=== PATIENT | female | born 1960 | race Caucasian/White ===

== ENCOUNTER 2016-07-05 11:13 | Emergency (ER) | payer MEDICAID ==
[2016-07-05] MEDS ORDERED: IPRATROPIUM/ALBUTEROL 3 ML DEYVIAL IH ONE (11:55)
[2016-07-05 12:25] VITALS: BP 146/71; PULSE 82; RESP 18; TEMP 98.2; O2SAT 95
--- NOTE | 2016-07-05 12:26 | UCPHY ---
H & P Patient Type: New Chief Complaint Nursing Narrative: COUGH AND CONGESTION SINCE SUNDAY, FEVER HIGH OF 100.6F. Time Seen by Provider: 07/05/16 11:26 HPI/ROS: 55-year-old female presents complaining of cough, nasal congestion she feels like she is wheezing. No history of asthma no history of emphysema she denies smoking. She also complains of fevers chills and body aches. Review of systems As per HPI General positive fever positive chills no weakness HEENT no eye pain no eye discharge. No eye redness, no sore throat Respiratory positive cough no shortness of breath Cardiac no chest pain, no peripheral edema GI no abdominal pain, no diarrhea, no constipation, no nausea, no vomiting no flank pain, no hematuria, no dysuria Musculoskeletal positive myalgias, no joint pain Heme no easy bruising, no easy bleeding Endo no polyuria, no polydipsia Skin no rashes, no pruritus Neuro no syncope, no dizziness, no headaches Psych is no suicidal ideation, no homicidal ideation Source: Patient Exam Limitations: No limitations - Medical/Surgical History Hx Asthma: No Hx Chronic Respiratory Disease: No Hx Diabetes: No Hx Cardiac Disease: No Hx Renal Disease: No Hx Cirrhosis: No Hx Alcoholism: No Hx HIV/AIDS: No Hx Splenectomy or Spleen Trauma: No Other PMH: DENIES - Family History Significant Family History: No pertinent family hx - Social History Smoking Status: Never smoked Alcohol Use: Rarely Drug Use: None - Physical Exam Exam: 55-year-old female Alert and oriented nontoxic appearance, no acute distress afebrile Atraumatic normocephalic Extraocular muscles intact, anicteric Nares mild yellowish discharge Oropharynx mild erythema no tonsillar swelling no exudate no uvular deviation, tolerating own secretions Neck supple no lymphadenopathy Lungs clear to auscultation bilaterally Heart regular rate and rhythm Abdomen normoactive bowel sounds soft nontender Extremities no cyanosis clubbing or edema Skin no rash Constitutional: Initial Vital Signs Temperature (C) 37.1 C 07/05/16 11:25 Heart Rate 68 07/05/16 11:25 Respiratory Rate 20 07/05/16 11:25 Blood Pressure 148/81 H 07/05/16 11:25 O2 Sat (%) 93 07/05/16 11:25 O2 Delivery Mode Room Air Allergies/Adverse Reactions: No Known Allergies Allergy (Unverified 07/05/16 11:31) Home Medications: Medication Instructions Recorded AZITHROMYCIN [Z-PACK] 250 mg PO DAILY #6 tab 07/05/16 Albuterol [Ventolin Hfa Inhaler] 2 puffs IH Q4 PRN #0 mdi 07/05/16 Estradiol 07/05/16 Guaifenesin/Codeine Phosphate 15 ml PO Q6 PRN #240 ml 07/05/16 [Codeine-Guaifen 10-100 mg/5 ml] Progesterone 07/05/16 Medical Decision Making ED Course/Re-evaluation: Patient seen evaluated for cough, feels like she is wheezing fevers chills mild at this She refuses to have an influenza swab She also is refusing a chest x-ray She was given a nebulizer treatment and felt markedly improved Impression Bronchitis with mild bronchospasm Plan AZithromax Albuterol Follow up with primary care physician - Data Points Medications Given: Discontinued Medications Albuterol/Ipratropium (Duoneb) 3 ml IH EDNOW ONE Stop: 07/05/16 11:56 Last Admin: 07/05/16 11:58 Dose: 3 ml Departure - Departure Disposition: Home, Routine, Self-Care Clinical Impression: Bronchitis Condition: Good Instructions: Acute Bronchitis (ED) Additional Instructions: Rest, drink plenty of fluids, azithromycin 2 pills today and 1 pill each day for the next 4 days. Albuterol inhaler every 4 hours as needed for severe cough. Follow-up with your primary care physician if you are not improving Referrals: Anai Mac MD [Primary Care Provider] - As per Instructions Prescriptions: Guaifenesin/Codeine Phosphate [Codeine-Guaifen 10-100 mg/5 ml] 15 ml PO Q6 PRN # 240 ml PRN Reason: Cough, Severe Albuterol [Ventolin Hfa Inhaler] 2 puffs IH Q4 PRN #0 mdi PRN Reason: Cough, Moderate AZITHROMYCIN [Z-PACK] 250 mg PO DAILY #6 tab - PQRS PQRS Measurement: na
== END 2016-07-05 12:29 | disposition home or self-care (01) ==
LOC: CED 11:13
DX: J20.9 Acute bronchitis, unspecified (principal)
CPT/HCPCS: 99204-PO; G0463-PO

== ENCOUNTER 2016-07-07 11:28 | Emergency (ER) | payer MEDICAID ==
[2016-07-07 11:40] VITALS: BP 157/85; PULSE 77; RESP 18; TEMP 98; O2SAT 92
[2016-07-07] MEDS ORDERED: ONDANSETRON DISINTEGRATING 4 MG TAB PO ONE (11:56)
--- NOTE | 2016-07-07 12:41 | DX ---
Chest 2 view, PA and lateral. History: Cough. Rhonchi. Findings: Heart size is within normal limits. Pulmonary vascularity is normal. The lungs are clear of acute consolidation. Mild peribronchial cuffing is seen bilaterally. No evidence for pleural effusio n. No significant osseous abnormality. Impression: Mild bronchitis. No other findings for acute cardiopulmonary abnormality.
--- NOTE | 2016-07-07 12:57 | UCPHY ---
H & P Time Seen by Provider: 07/07/16 11:51 Patient Type: Established HPI/ROS: Patient reported hearing aid chest rattle with her cough over the past couple days. She was diagnosed with bronchitis 2 days prior to this visit and placed on Zithromax and albuterol inhaler. She has been compliant with his medications but is concerned about the change in the sound of her breathing and wonders if she has pneumonia. She reports having some chills but no other additional symptoms since she was seen 3 days ago. ROS: No significant fatigue or other constitutional complaints. HEENT: She denies any headache. No nasal congestion at this time,. Pulmonary: No pleuritic pain. No respiratory distress. Cardiovascular: No heart palpitations or lightheadedness. No lower extremity swelling. GI: No belly pain or vomiting and 7 point ROS is otherwise negative. Smoking Status: Never smoked Physical Exam: General Appearance: Alert, no distress. Eyes: Pupils equal and round no pallor or injection. ENT, Mouth: Mucous membranes moist. Respiratory: Patient has rhonchi bilaterally with minimal rales on the left mixed with rhonchi. Cardiovascular: Regular rate and rhythm. No murmur gallop rub. No JVD. No peripheral edema. Gastrointestinal: Soft, nontender Neurological: Alert with no deficits Skin: Warm and dry, no rashes. Musculoskeletal: Neck is supple nontender. Extremities are symmetrical, full range of motion. Psychiatric: Mood and affect normal DIFFERENTIAL DIAGNOSIS: After history and physical exam differential diagnosis was considered for bronchitis with atelectasis, pneumonia, pneumothorax Constitutional: Initial Vital Signs Temperature (C) 36.6 C 07/07/16 11:39 Heart Rate 77 07/07/16 11:39 Respiratory Rate 18 07/07/16 11:39 Blood Pressure 157/85 H 07/07/16 11:39 O2 Sat (%) 92 07/07/16 11:39 O2 Delivery Mode Room Air Allergies/Adverse Reactions: No Known Allergies Allergy (Unverified 07/05/16 11:31) Home Medications: Medication Instructions Recorded AZITHROMYCIN [Z-PACK] 250 mg PO DAILY #6 tab 07/05/16 Albuterol [Ventolin Hfa Inhaler] 2 puffs IH Q4 PRN #0 mdi 07/05/16 Estradiol 07/05/16 Guaifenesin/Codeine Phosphate 15 ml PO Q6 PRN #240 ml 07/05/16 [Codeine-Guaifen 10-100 mg/5 ml] Progesterone 07/05/16 Fluticasone Hfa 220 Mcg [Flovent 2 puffs IH DAILY #1 mdi 07/07/16 220 MCG Hfa MDI (*)] MDM/Departure - MDM Diagnostics: Chest x-ray: Mild airway disease by my interpretation with no focal infiltrates pneumothorax or other abnormalities. Medications Given: Discontinued Medications Ondansetron HCl (Zofran Odt) 4 mg PO EDNOW ONE Stop: 07/07/16 11:57 Last Admin: 07/07/16 11:59 Dose: 4 mg ED Course/Re-evaluation: I counseled patient regarding her bronchitis and suggested Flovent steroid inhaler in addition to break up some of the mucus in her airways eye. I also instructed her regarding CPT that a friend could perform for her to help break up mucus. - Depart Disposition: Home, Routine, Self-Care Clinical Impression: Bronchitis Instructions: Acute Bronchitis (ED) Additional Instructions: Diagnosis: Bronchitis recheck Plan: Humidifier Guaifenesin [id number] Add Flovent steroid inhaler Continue albuterol inhaler and Zithromax antibiotic. Chest percussive therapy daily as described. Follow up with primary care physician for any ongoing symptoms Return for any significant worsening despite the treatment plan. Prescriptions: Fluticasone Hfa 220 Mcg [Flovent 220 MCG Hfa MDI (*)] 2 puffs IH DAILY #1 mdi Referrals: Anai Mac MD [Primary Care Provider] - As per Instructions - PQRS PQRS Measurement: NA
== END 2016-07-07 13:03 | disposition home or self-care (01) ==
LOC: CED 11:28
DX: J40 Bronchitis, not specified as acute or chronic (principal)
CPT/HCPCS: 71020-PO; 99214-PO; G0463-PO